=== PATIENT | male | born 1975 | race Caucasian/White ===

== ENCOUNTER 2017-11-21 19:42 | Emergency (ER) | payer BC ==
[~2017-11-21] VITALS: Ht 177.8 cm; Wt 70.6 kg
[2017-11-21 19:44] VITALS: TEMP 37; Ht 177.8 cm; Wt 70.6 kg
[2017-11-21] MEDS ORDERED: MULT-513 PO (20:00)
[2017-11-21] MEDS ORDERED: IBUP-1050 PO (20:00)
--- NOTE | 2017-11-21 20:19 | DIAGNOSTIC IMAGING REPORT ---
L TOE(S) MIN 2 VIEWS HISTORY: 42 years-old Male crush injury, left great toe acute left first toe pain status post trauma COMPARISON: None available TECHNIQUE: 3 views of the left great toe FINDINGS: There is an acute nondisplaced fracture involving the phalangeal tuft of the great toe. Mild associated soft tissue swelling. No opaque foreign body. No additional acute fracture or dislocation. IMPRESSION: Acute nondisplaced fracture of the first distal phalangeal tuft with mild soft tissue swelling. The above report was generated using voice recognition software. It may contain grammatical, syntax or spelling errors. Electronically signed by: Davion Blandon M.D. 11/21/2017 8:17 PM Dictated Date/Time: 11/21/2017 8:16 PM
[2017-11-21] MEDS ORDERED: CEPHALEXIN 500MG HOME PACK 1 EA BTL PO STA (20:21)
[2017-11-21] MEDS ORDERED: CEPHALEXIN MONOHYDRATE 250 MG CAP PO STA (20:21)
[2017-11-21] MEDS ORDERED: CEPH500C PO (20:38)
--- NOTE | 2017-11-21 20:40 | EMERGENCY ROOM VISIT NOTE ---
ED Visit Note First contact with patient: 19:46 CHIEF COMPLAINT: Left great toe pain, bleeding HISTORY OF PRESENT ILLNESS: This 42-year-old man patient presents to the emergency department, ambulatory, complaining of swelling, pain, and bleeding in the left great toe. Patient states he dropped a 10 pound piece of steel off of a shelf at approximately 11:15 this am. He states the object fell approximately 6 ft and landed on his left great toe. He immediately iced the wound, noticed a buildup of blood below the toenail. He states he used a new it and cleaned it with alcohol and hot water, then drilled a hole through his toe. He states immediately he began experiencing relief from the pain and pressure, but since this time, the toe has not stopped bleeding through the hole. Symptoms are better at rest and worse with weight bearing. The patient rates the pain as throbbing and 4/10. The patient has not had relief of the pain. The patient is able to walk. No numbness or weakness. No ankle pain. There is a superficial laceration on the dorsal aspect of the toe, just proximal to the nail. The patient is able to move all of their other toes and their ankle without pain. No previous fracture to this foot. Tetanus vaccination is up-to-date. REVIEW OF SYSTEMS: GENERAL: A 6 system review of systems was completed with positives and pertinent negatives in the HPI. ALLERGIES: None MEDICATIONS: None PMH: Spinal surgery SOCIAL HISTORY: The patient lives locally with family. He denies drug, alcohol , tobacco use. PHYSICAL EXAM: Vital Signs: Reviewed Nurse's notes, vital signs stable. GENERAL : This is a 42-year-old white male, in no acute distress, but appears in pain, well-developed, well-nourished. SKIN: There is a 1 cm very superficial laceration on the dorsal aspect of the left great toe. There is no depth to this wound. There is a hole drilled through the middle of the left great toenail. There is a small amount of slow bleeding coming from this hole. MUSCULOSKELATAL: There is no obvious visual deformity of the left great toe. There is erythema and ecchymosis of the distal left great toe. There is warmth. There is tenderness and swelling over the distal aspect of the left great toe. There is no tenderness over the other digits or foot. The range of motion of the left great toe is limited secondary to pain. There is no tenderness over the plantar fascia. The skin is intact and there are no lacerations or puncture wounds. Dorsalis pedis pulse 2+. Capillary refill less than 2 seconds. RADIOLOGY: L TOE(S) MIN 2 VIEWS HISTORY: 42 years-old Male crush injury, left great toe acute left first toe pain status post trauma COMPARISON: None available TECHNIQUE: 3 views of the left great toe FINDINGS: There is an acute nondisplaced fracture involving the phalangeal tuft of the great toe. Mild associated soft tissue swelling. No opaque foreign body. No additional acute fracture or dislocation. IMPRESSION: Acute nondisplaced fracture of the first distal phalangeal tuft with mild soft tissue swelling. The above report was generated using voice recognition software. It may contain grammatical, syntax or spelling errors. Electronically signed by: Davion Blandon M.D. 11/21/2017 8:17 PM Dictated Date/Time: 11/21/2017 8:16 PM EMERGENCY DEPARTMENT COURSE: I examined the patient. An X-ray of the left great toe was reviewed by myself and radiologist and reveals an acute nondisplaced fracture of the first distal phalangeal tuft. I discussed the findings with the patient and his mother at bedside. Because of the superficial laceration and hole drilled through the nail in addition to the fracture, the patient will be started on prophylactic antibiotics. The patient was given his first dose of Keflex and a home pack. He was offered a postop shoe and crutches and declined. I bandaged the wound with Telfa, gauze, Robi, and Coban. Discharge instructions reviewed. All questions answered to the patient and his mother satisfaction. The patient was discharged home in good condition. I attest that I have personally reviewed the patient's current medication list. Patient was found to have normal blood pressure on screening and does not require follow-up. Etiologies such as soft tissue injury, fracture, dislocation, neurovascular compromise, compartment syndrome, infection, cellulitis, subungual hematoma, nailbed laceration, as well as others were entertained. DIAGNOSIS: Crush injury of left great toe, fracture distal phalanx of left great toe, subungual hematoma The chart was completed utilizing [employer] voice recognition software. Grammatical errors, random word insertions, pronoun errors, and incomplete sentences are an occasional consequence of this system due to software limitations, ambient noise, and hardware issues. Any formal questions or concerns about the content, text, or information contained within the body of this dictation should be directly addressed to the provider for clarification. Current/Historical Medications Scheduled Cephalexin Monohydrate (Keflex), 500 MG PO QID Ibuprofen (Advil), 400 MG PO PRN Multivitamins/Minerals (Mvi With Minerals), 1 TAB PO DAILY Allergies Coded Allergies: No Known Allergies (Unverified , 11/21/17) Vital Signs Date Time Temp Pulse Resp B/P (MAP) Pulse Ox O2 Delivery O2 Flow Rate FiO2 11/21/17 20:44 87 20 129/88 97 11/21/17 19:44 37.0 87 20 129/88 97 Room Air Medications Administered Medications (Trade) Dose Ordered Sig/Davi Route Start Time Stop Time Status Last Admin Dose Admin Cephalexin Monohydrate (Keflex Cap) 500 mg NOW STAT PO 11/21/17 20:21 11/21/17 20:23 DC 11/21/17 20:31 500 MG Cephalexin Monohydrate (Keflex 500MG Home Pack) 1 homepack NOW STAT PO 11/21/17 20:21 11/21/17 20:23 DC 11/21/17 20:31 1 HOMEPACK Departure Information Impression Primary Impression: Fracture of left great toe Additional Impression: Subungual hematoma of great toe of left foot Dispostion Home / Self-Care Condition GOOD Prescriptions Cephalexin Monohydrate (Keflex) 500 Mg Cap 500 MG PO QID for 6 Days, #24 CAP Prov: Nakita Kyle PA-C 11/21/17 Referrals Gene Wiklerson PA-C (PCP) Patient Instructions ED Fx Toe Open, ED Hematoma Subungual, My [facility] Additional Instructions You were seen in the emergency department today for a left great toe fracture. There is an associated subungual hematoma which he did open to drain through the nail. I suspect the increased bleeding is related to the fracture. This should improve on its own. Keep the bandage in place until tomorrow morning. At that time, you may replace the bandage with new, clean gauze. Cephalexin(Keflex) 500mg: Take one pill four times daily for7 days to prevent infection. All antibiotics can cause diarrhea. If this occurs and you feel worse or it does not resolve in 1-2 days follow up with your doctor or return to the Emergency Department as this could be signs of serious underlying problems. Any medication can cause an allergic reaction, stop the pills immediately and return to the ER for rash, hives, breathing difficulties, or swelling. Ibuprofen(Motrin, Advil) may be used for fever or pain. Use 600mg every six hours as needed. Take with food. Avoid using more than 2400mg in a 24 hour period. Do not use 2400mg per day for more than three consecutive days without physician direction. Prolonged inappropriate use can lead to stomach upset or ulcers. (AND/OR) Acetaminophen(Tylenol) may be used for fever or pain. Use 1000mg every six hours as needed. Avoid using more than 3000mg in a 24 hour period. Ice compresses for 20 minutes at a time four times daily for 2-3 days. Rest and elevate your injury. Return to the ER immediately for any numbness, tingling, severe pain, extreme swelling in the extremity or as needed. Call [facility], [phone], if no improvement within 3-5 days, to arrange follow up for your injury. Follow-up with your primary care physician in 2 to 3 days for a recheck of your current condition. Problem Qualifiers Primary Impression: Fracture of left great toe Encounter type: initial encounter Fracture type: open Phalanx: distal Fracture alignment: nondisplaced Qualified Codes: S92.425B - Nondisplaced fracture of distal phalanx of left great toe, initial encounter for open fracture Additional Impression: Subungual hematoma of great toe of left foot Encounter type: initial encounter Qualified Codes: S90.212A - Contusion of left great toe with damage to nail, initial encounter
[2017-11-21 20:44] VITALS: BP 129/88; PULSE 87; O2SAT 97
== END 2017-11-21 20:45 | disposition home or self-care (01) ==
LOC: C.EDB 19:43 → C.EDD 20:45
DX: S92.425A Nondisplaced fracture of distal phalanx of left great toe, initial encounter for closed fracture (principal); S90.212A Contusion of left great toe with damage to nail, initial encounter; W20.8XXA Other cause of strike by thrown, projected or falling object, initial encounter; S91.112A Laceration without foreign body of left great toe without damage to nail, initial encounter